=== PATIENT | female | born 1960 ===

== ENCOUNTER 2017-08-27 18:26 | Emergency (ER) | payer OTHER ==
[~2017-08-27] VITALS: Ht 162.6 cm; Wt 84.5 kg
[2017-08-27 18:29] VITALS: BP 142/75
[2017-08-27] MEDS ORDERED: HYDROcodone/APAP 5/325 TABLET PO ONE (19:30)
[2017-08-27] MEDS ORDERED: HYDROcodone/APAP 5/325 TABLET ONE (19:56)
== END 2017-08-27 22:30 | disposition home or self-care (01) ==
LOC: ED 20:42
DX: S82.51XA Displaced fracture of medial malleolus of right tibia, initial encounter for closed fracture (principal); C40.20 Malignant neoplasm of long bones of unspecified lower limb; X50.1XXA Overexertion from prolonged static or awkward postures, initial encounter; Y93.9 Activity, unspecified; Y99.8 Other external cause status; Y92.89 Other specified places as the place of occurrence of the external cause
CPT/HCPCS: 29515; 99284